=== PATIENT | female | born 1960 | race African-American/Black ===

== ENCOUNTER 2017-03-15 14:25 | Emergency (ER) | payer BC ==
[~2017-03-15] VITALS: Ht 162.6 cm; Wt 90.7 kg
[~2017-03-15 14:25] MED LIST: AMOXICILLIN500 MG ORAL; IBUPROFEN600 MG ORAL; IBUPROFEN800 MG ORAL; TRAMADOL HCL50 MG ORAL
[2017-03-15] MEDS ORDERED: SPIRIVA18 MCG INH (15:00)
[2017-03-15] MEDS ORDERED: Pseudoephedrine 30mg tab ORAL ONE (15:00)
[2017-03-15] MEDS ORDERED: OMEPRAZOLE20 M2 ORAL (15:17)
[2017-03-15] MEDS ORDERED: IBUPROFEN600 MG ORAL (15:17)
[2017-03-15] MEDS ORDERED: SUDAFED 12-HOU120 MG PO (15:17)
[2017-03-15] MEDS ORDERED: FLONASE SENSIM9.9 ML NS (15:17)
[2017-03-15 15:23] VITALS: BP 124/70
--- NOTE | 2017-03-15 18:28 | Emergency Room Report ---
History of Present Illness General Chief Complaint: Headache Source: Patient Present Illness HPI The patient is a 57-year-old female presenting for headache. This has been present for the past week. She states that her head feels like a balloon with pressure. Pain is an 8/10. She does admit to nasal congestion and history of allergies. Pain worse with head movement. She tried Advil at home which did help. She denies other symptoms including nausea, vomiting, fever, chills, neck pain or stiffness, rash, cough Allergies: Coded Allergies: LACTOSE (Unverified Allergy, Mild, 04/14/14) INTOLERANT Patient History Past Medical History: see triage record Pertinent Family History: none Reviewed Nursing Documentation: PMH: Agreed, PSxH: Agreed Nursing Documentation-PMH Hx Asthma: Yes Review of Systems All Other Systems: negative except mentioned in HPI Physical Exam Vital Signs Date Time Temp Pulse Resp B/P (MAP) Pulse Ox O2 Delivery O2 Flow Rate FiO2 03/15/17 14:39 97.9 90 16 118/75 100 Room Air Sp02 EP Interpretation: reviewed, normal General Appearance: no apparent distress, alert, GCS 15, non-toxic Head: normocephalic, atraumatic, other - TTP over maxillary sinuses Eyes: bilateral eye normal inspection, bilateral eye PERRL ENT: hearing grossly normal, normal pharynx, no angioedema, normal voice, uvula midline, nasal congestion Neck: full range of motion, supple/symm/no masses Respiratory: chest non-tender, lungs clear, normal breath sounds, speaking full sentences Cardiovascular #1: regular rate, rhythm, no edema Cardiovascular #2: 2+ carotid (R), 2+ carotid (L), 2+ radial (R), 2+ radial (L) , 2+ dorsalis pedis (R), 2+ dorsalis pedis (L) Musculoskeletal: back normal, gait/station normal, normal range of motion, non- tender Neurologic: alert, oriented x3, responsive, motor strength/tone normal, sensory intact, speech normal Psychiatric: judgement/insight normal, memory normal, mood/affect normal, no suicidal/homicidal ideation Skin: normal color, no rash, warm/dry, well hydrated Medical Decision Making PA Attestation Dr. Iqbal is my supervising physician. Patient management was discussed with my supervising physician Diagnostic Impression: Primary Impression: Sinusitis Qualified Codes: J01.00 - Acute maxillary sinusitis, unspecified ER Course The patient is a 57-year-old female presenting for headache. Differential diagnoses considered but not limited to: Acute sinusitis, pharyngitis, rhinitis, bronchitis PE: No apparent distress. + TTP over maxillary sinuses. Lungs CTA bilat. No wheezing. No accessory muscle use. Heart: RRR, no abnormal heart sounds Ears: external auditory canal clear. Non erythematous. Bilat TM intact. Cone of light present bilat. No bulging of TM. No serous fluid seen. + nasal D/C no cervical lymphad No tonsillar exudate. Uvula midline.Oropharynx non erythematous The patient will be discharged with prescription for Flonase, Sudafed, and Motrin. ER precautions are given She is also asking for refill of her omeprazole for GERD Last Vital Signs Date Time Temp Pulse Resp B/P (MAP) Pulse Ox O2 Delivery O2 Flow Rate FiO2 03/15/17 15:23 97.9 70 17 124/70 98 Room Air Status: improved Disposition: HOME, SELF-CARE Condition: Improved Scripts Omeprazole (OMEPRAZOLE) 20 Mg Capsule.dr 20 MG ORAL DAILY, #30 CAP Prov: TERZIAN,LESLY P.A. 03/15/17 Fluticasone Furoate (FLONASE SENSIMIST) 9.9 Ml [place].susp 1 SPRAYS NS DAILY, #10 ML Prov: TERZIAN,LESLY P.A. 03/15/17 Pseudoephedrine Hcl (SUDAFED 12-HOUR) 120 Mg Tablet.er 120 MG PO Q12HR, #30 TAB Prov: TERZIAN,LESLY P.A. 03/15/17 Ibuprofen* (MOTRIN*) 600 Mg Tablet 600 MG ORAL Q8H Y for For Pain, #30 TAB 0 Refills Prov: TERZIAN,LESLY P.A. 03/15/17 Referrals: PAYAL DAMON,REFERRING (PCP) Patient Instructions: Sinusitis, Adult Additional Instructions: I discussed my findings with the patient. All questions and concerns have been answered. Treatment and medication compliance have been addressed. I advised the patient that they need to follow up with PMD in 3-5 days. Return to ED if symptoms worsen, new symptoms arise, or if needed for any reason. Patient verbalized understanding of discharge instructions. TERZILESLY GAXIOLA Mar 15, 2017 18:28
== END 2017-03-15 15:53 | disposition home or self-care (01) ==
LOC: EMR 15:00
DX: J32.9 Chronic sinusitis, unspecified (principal); J45.909 Unspecified asthma, uncomplicated
CPT/HCPCS: 99284

== ENCOUNTER 2017-03-31 17:58 | Emergency (ER) | payer BC, OTHER ==
[~2017-03-31] VITALS: Ht 165.1 cm; Wt 93.0 kg
[~2017-03-31 17:58] MED LIST changes: +FLONASE SENSIM9.9 ML NS; +OMEPRAZOLE20 M2 ORAL; +SPIRIVA18 MCG INH; +SUDAFED 12-HOU120 MG PO
[2017-03-31 18:06] VITALS: BP 111/80
[2017-03-31] MEDS ORDERED: Bacitracin Oint UD TOPIC ONE (18:45)
[2017-03-31] MEDS ORDERED: BACITRACIN15 GM TOPIC (18:47)
[2017-03-31 19:00] VITALS: BP 114/74
--- NOTE | 2017-03-31 21:37 | Emergency Room Report ---
History of Present Illness General Chief Complaint: Wound Recheck/Suture Removal Source: Patient, Medical Record Present Illness HPI The patient is a 57-year-old female presenting for wound check. She states that she had a laceration of the left ring finger 2 weeks prior. Sutures were placed at urgent care and also removed 10 days afterwards. She states that the wound does not appear closed. She denies any pain at this time. She denies recent discharge or bleeding. She denies any other symptoms including fever, rash, numbness or tingling Allergies: Coded Allergies: LACTOSE (Unverified Allergy, Mild, 04/14/14) INTOLERANT Patient History Past Medical History: see triage record Pertinent Family History: none Last Menstrual Period: 10 years ago Reviewed Nursing Documentation: PMH: Agreed, PSxH: Agreed Nursing Documentation-PMH Past Medical History: No History, Except For Hx Asthma: Yes Review of Systems All Other Systems: negative except mentioned in HPI Physical Exam Vital Signs Date Time Temp Pulse Resp B/P (MAP) Pulse Ox O2 Delivery O2 Flow Rate FiO2 03/31/17 18:06 97.5 18 111/80 100 Room Air 03/31/17 18:06 75 Sp02 EP Interpretation: reviewed, normal General Appearance: no apparent distress, alert, GCS 15, non-toxic Head: normocephalic, atraumatic Eyes: bilateral eye normal inspection, bilateral eye PERRL ENT: hearing grossly normal, normal pharynx, no angioedema, normal voice Musculoskeletal: normal range of motion, other - L 4th digit 2cm linear laceration to palmar surface. Wound edges not fully approximated. Neurologic: alert, oriented x3, responsive, motor strength/tone normal, sensory intact, speech normal Psychiatric: judgement/insight normal, memory normal, mood/affect normal, no suicidal/homicidal ideation Skin: no rash, warm/dry Lymphatic: no adenopathy Medical Decision Making PA Attestation Dr. Srinivasan is my supervising physician. Patient management was discussed with my supervising physician Diagnostic Impression: Primary Impression: Finger laceration Qualified Codes: S61.215D - Laceration without foreign body of left ring finger without damage to nail, subsequent encounter ER Course The patient is a 57-year-old female presenting for wound check. Ddx considered include but not limited to wound dehiscence, infection, laceration, among others PE: NAD L 4th digit 2cm linear laceration to palmar surface. Wound edges not fully approximated. FulL AROM intact SILT The wound is cleaned and bacitracin is applied with dressing. She will followup with her primary doctor. ER precautions given Last Vital Signs Date Time Temp Pulse Resp B/P (MAP) Pulse Ox O2 Delivery O2 Flow Rate FiO2 03/31/17 19:00 68 16 114/74 98 Room Air 03/31/17 18:06 97.5 Status: improved Disposition: HOME, SELF-CARE Condition: Improved Scripts Bacitracin (Bacitracin) 28.4 Gm Oint...g. 1 APPLIC TOPIC THREE TIMES A DAY, #28 GM Prov: LESLY BELTRÁN 03/31/17 Referrals: PAYAL DAMON,REFERRING (PCP) Patient Instructions: Wound Check Additional Instructions: I discussed my findings with the patient. All questions and concerns have been answered. Treatment and medication compliance have been addressed. I advised the patient that they need to follow up with PMD in 3-5 days. Return to ED if symptoms worsen, new symptoms arise, or if needed for any reason. Patient verbalized understanding of discharge instructions. LESLY BELTRÁN Mar 31, 2017 21:37
== END 2017-03-31 19:00 | disposition home or self-care (01) ==
LOC: EMR 18:37
DX: S61.215D Laceration without foreign body of left ring finger without damage to nail, subsequent encounter (principal); X58.XXXD Exposure to other specified factors, subsequent encounter; J45.909 Unspecified asthma, uncomplicated; Z99.81 Dependence on supplemental oxygen
CPT/HCPCS: 99283

== ENCOUNTER 2018-04-11 17:20 | Emergency (ER) | payer SELFPAY ==
[~2018-04-11] VITALS: Ht 167.6 cm; Wt 81.6 kg
[~2018-04-11 17:20] MED LIST changes: +BACITRACIN15 GM TOPIC
--- NOTE | 2018-04-11 17:35 | NUR ---
ED Nurse Note: Patient walked in from home c/o SOB x 3 weeks. patient stated that she gets congestion when the weather is cold. Denies any pain at this time. Temp 98.3 F in the ER
[2018-04-11 17:47] VITALS: BP 122/86
[2018-04-11] MEDS ORDERED: AUGMENTIN 875-1 EAC1 ORAL (17:56)
[2018-04-11] MEDS ORDERED: PREDNISONE20 MG ORAL (17:56)
[2018-04-11 18:08] VITALS: BP 122/86
--- NOTE | 2018-04-11 18:11 | NUR ---
ED Nurse Note: Patient cleared by ERMD Dr. chavez to be discharged. Discharge instruction/paper/prescription given. Patient vebalized understanding, signed paper. ID band removed. Patient put her own clothes on. Patient ambulated out of ED with steady gait.
--- NOTE | 2018-04-11 18:54 | Emergency Room Report ---
History of Present Illness General Chief Complaint: Dyspnea/Respdistress Source: Patient, Medical Record Present Illness HPI 58-year-old female presents ED for evaluation. Patient complaining of sinus congestion for 3 weeks. States that her PMD prescribed her decongestant medication but states it is not helping. Denies fevers chills. Notes pain, pressure, 6 out of 10, nonradiating. Notes earache. Denies sore throat. Denies cough. Denies sick contacts or recent travel. No other aggravating relieving factors. Denies any other associated symptoms Allergies: Coded Allergies: LACTOSE (Unverified Allergy, Mild, 04/14/14) INTOLERANT Patient History Past Medical History: none Past Surgical History: none Pertinent Family History: none Social History: Denies: smoking, alcohol use, drug use Last Menstrual Period: none Now: No : 9 Para: 6 Immunizations: UTD Reviewed Nursing Documentation: PMH: Agreed; PSxH: Agreed Nursing Documentation-PMH Hx Asthma: Yes Review of Systems All Other Systems: negative except mentioned in HPI Physical Exam Vital Signs Date Time Temp Pulse Resp B/P (MAP) Pulse Ox O2 Delivery O2 Flow Rate FiO2 04/11/18 17:39 98.2 85 18 122/86 96 Room Air Sp02 EP Interpretation: reviewed, normal General Appearance: no apparent distress, alert, GCS 15, non-toxic Head: normocephalic Eyes: bilateral eye normal inspection, bilateral eye PERRL, bilateral eye EOMI ENT: hearing grossly normal, normal pharynx, no angioedema, normal voice, TMs + canals normal Neck: full range of motion, no meningismus, supple/symm/no masses Respiratory: chest non-tender, lungs clear, normal breath sounds, speaking full sentences Cardiovascular #1: normal inspection Gastrointestinal: normal inspection Rectal: deferred Genitourinary: no CVA tenderness Musculoskeletal: normal inspection Neurologic: alert, oriented x3, responsive, motor strength/tone normal, sensory intact, speech normal Psychiatric: normal inspection Skin: normal inspection Lymphatic: normal inspection Medical Decision Making Diagnostic Impression: Primary Impression: Sinusitis Qualified Codes: J01.00 - Acute maxillary sinusitis, unspecified ER Course Hospital Course 58-year-old F presents to ED complaining of nasal congestion x 3 weeks. unrelieved with medications Differential diagnoses include: URI, pharyngitis, otitis media, asthma Clinical course Patient placed on stretcher. After initial history, physical exam reveals a middle aged female in no acute distress. Bilateral TM unremarkable. No pharyngeal erythema. No tonsillar exudates. No lymphadenopathy. lungs clear. abdomen soft. Clinical findings consistent with sinusitits. Given the symptoms have not resolved with [id number] medications and have persisted for more than 3 weeks we will prescribe antibiotics Patient will be discharged to follow-up with her PMD Diagnosis - sinusitits Stable and discharged home with prescriptions for Prednisone, Augmentin. Instructed to followup with PMD. Return to ED if symptoms recur or worsen Last Vital Signs Date Time Temp Pulse Resp B/P (MAP) Pulse Ox O2 Delivery O2 Flow Rate FiO2 04/11/18 18:08 98.2 82 18 122/86 96 Room Air Status: improved Disposition: HOME, SELF-CARE Condition: Stable Scripts Prednisone* (PREDNISONE*) 20 Mg Tablet 40 MG ORAL DAILY, #10 TAB Prov: Kirk Regan MD 04/11/18 Amoxicillin/Potassium Clav 875-125* (AUGMENTIN 875-125 TABLET*) 1 Each Tablet 1 TAB ORAL TWICE A DAY, #14 TAB Prov: Kirk Regan MD 04/11/18 Referrals: PAYAL DAMON,REFERRING (PCP) Patient Instructions: Sinusitis, Adult, [id number] Kirk Regan MD Apr 11, 2018 18:54
== END 2018-04-11 18:05 | disposition home or self-care (01) ==
LOC: EMR 18:00
DX: J32.9 Chronic sinusitis, unspecified (principal); J45.909 Unspecified asthma, uncomplicated
CPT/HCPCS: 99283